=== PATIENT | male | born 1950 | race African-American/Black ===

== ENCOUNTER 2016-07-31 14:55 | Observation (INO) | payer MEDICARE, BC ==
[~2016-07-31] VITALS: Ht 195.6 cm; Wt 110.5 kg
[~2016-07-31 14:55] MED LIST: ONDANSETRON HCL 4 MG/2 ML VIAL IV PUSH ONE; PHENYLEPH/NS 1000 MCG/10 ML SYR IV ONE; PROPOFOL 200 MG/20 ML AMP IV ONE; SODIUM CHLOR 0.9% 250 ML INJ 250 ML IV ONE; ePHEDrine/NS 25 MG/5 ML SYR IV ONE
[2016-07-31] MEDS ORDERED: TRIAMCINOLONE ACETONIDE/PF 40 MG/ML OPTH VIAL ONE (15:12)
[2016-07-31] MEDS ORDERED: STERILE WATER FOR INJ 20 ML VIAL ONE (15:12)
[2016-07-31] MEDS ORDERED: DEXAMETHASONE SOD PHOS 4 MG/ML VIAL ONE (15:13)
[2016-07-31] MEDS ORDERED: EPINEPHrine HCL (1:1000) 1 MG/ML VIAL ONE (15:13)
[2016-07-31] MEDS ORDERED: ceFAZolin INJ 1,000 MG VIAL ONE (15:13)
[2016-07-31] MEDS ORDERED: BALANCED SALT SOLN OPHT IRRIG 15 ML BTL ONE ×3 (15:13→17:40)
[2016-07-31] MEDS ORDERED: AMLO10TA2 PO (15:31)
[2016-07-31] MEDS ORDERED: METO25TA6 PO (15:38)
[2016-07-31] MEDS ORDERED: ROSU1TAB6 PO (15:38)
[2016-07-31] MEDS ORDERED: MINO2.5T PO (15:38)
[2016-07-31] MEDS ORDERED: CALC667C (15:38)
[2016-07-31] MEDS ORDERED: METO5TAB3 PO (15:38)
[2016-07-31] MEDS ORDERED: FOLBTAB2 PO (15:38)
[2016-07-31] MEDS ORDERED: LOSA100T PO (15:38)
[2016-07-31] MEDS ORDERED: CLON0.1T PO (15:38)
[2016-07-31] MEDS ORDERED: ASPI325T PO (15:38)
[2016-07-31 15:44] VITALS: BP 187/87; PULSE 95; RESP 18; TEMP 97.7; O2SAT 100
[2016-07-31] MEDS ORDERED: POVIDONE IODINE 5% (ANTISEPSIS KIT) 4 APPLICATIONS EACH NARE PRN (15:45)
[2016-07-31] MEDS ORDERED: TROPICAMIDE 1% OPTH SOLN 2 ML BTL RIGHT EYE ONE (15:45)
[2016-07-31] MEDS ORDERED: INSULIN HUMAN REGULAR 1,000 UNITS/10 ML VIAL SQ PRN (15:45)
[2016-07-31] MEDS ORDERED: LACTATED RINGER'S 1000 ML IV PRN (15:45)
[2016-07-31] MEDS ORDERED: CYCLOPENTOLATE HCL 1% OPHT SOLN 2 ML BTL RIGHT EYE ONE (15:45)
[2016-07-31] MEDS ORDERED: METOPROLOL TARTRATE 25 MG TAB PO PRN (15:45)
[2016-07-31] MEDS ORDERED: CHLORHEXIDINE GLUCONATE 2 % 1 PACK (2 CLOTHS) TOPICAL PRN (15:45)
[2016-07-31] MEDS ORDERED: SODIUM CHLORID 0.9% 500 ML IV PRN (15:45)
[2016-07-31] MEDS ORDERED: PHENYLEPHRINE HCL 2.5 % OPTH SOLN 15 ML BTL RIGHT EYE ONE (15:45)
[2016-07-31] MEDS ORDERED: TROPICAMIDE 1% OPHT SOLN 15 ML BTL ONE (15:50)
[2016-07-31] MEDS ORDERED: PHENYLEPHRINE HCL 2.5% OPTH SOLN 2 ML BTL ONE (15:50)
[2016-07-31] MEDS ORDERED: ATROPINE SULFATE 1% OPHT SOLN 2 ML BTL ONE (15:50)
[2016-07-31] MEDS ORDERED: [UNRECOGNIZED DRUG - OTHER] I-OCULAR ONE (16:00)
[2016-07-31] MEDS ORDERED: [UNRECOGNIZED DRUG - OTHER] I-OCULAR ONE (16:00)
[2016-07-31] MEDS ORDERED: VANCOMYCIN 1 MG/0.1 ML I-OCULAR ONE (16:00)
[2016-07-31] MEDS ORDERED: CEFTAZIDIME I-OCULAR ONE (16:00)
[2016-07-31] MEDS: PHENYLEPHRINE HCL 2.5 % OPTH SOLN 15 ML BTL RIGHT EYE SCH ×3 (16:10→16:40)
[2016-07-31] MEDS: CYCLOPENTOLATE HCL 1% OPHT SOLN 2 ML BTL RIGHT EYE SCH ×3 (16:10→16:40)
[2016-07-31] MEDS: ATROPINE SULFATE 1% OPHT SOLN 2 ML BTL RIGHT EYE SCH ×3 (16:10→16:40)
[2016-07-31] MEDS: TROPICAMIDE 1% OPTH SOLN 2 ML BTL RIGHT EYE SCH ×3 (16:10→16:40)
[2016-07-31 16:13] LABS: POTASSIUM 4.3 MEQ/L (3.5-5.1)
[2016-07-31] MEDS ORDERED: CYCLOPENTOLATE HCL 1% OPHT SOLN 2 ML BTL RIGHT EYE SCH (16:30)
[2016-07-31] MEDS ORDERED: ATROPINE SULFATE 1% OPHT SOLN 5 ML BTL RIGHT EYE SCH (16:45)
[2016-07-31] MEDS ORDERED: FAMOTIDINE 20 MG/2 ML VIAL ONE (16:47)
[2016-07-31] MEDS: TOBRAMYCIN/DEXAMETHASONE OPTH OINT 3.5 GM TUBE ONE ×2 (17:32→18:55)
[2016-07-31] MEDS ORDERED: DO NOT ADM ANY ANTICOAGULANT DRUGS PRN (19:45)
[2016-07-31 20:00] VITALS: BP 187/87; PULSE 77; RESP 20; TEMP 97.6; O2SAT 96
[2016-07-31] MEDS ORDERED: MOXIFLOXACIN 0.5% OPHT SOLN 3 ML BTL RIGHT EYE SCH (21:00)
[2016-07-31] MEDS ORDERED: prednisoLONE ACETATE 1% OPHT SUSP 5 ML BTL RIGHT EYE SCH (21:00)
[2016-07-31] MEDS: oxyCODONE/ACETAMINOPHEN 5 MG/325 MG TAB PO PRN (21:56)
[2016-08-01] VITALS: BP_SYST 180; BP_SYST 185; BP_DIAS 60; BP_DIAS 81; PULSE 79; RESP 20; TEMP 97; O2SAT 96
[2016-08-01 04:00] VITALS: BP 155/73; PULSE 76; RESP 20; TEMP 96.7; O2SAT 76
[2016-08-01] MEDS: oxyCODONE/ACETAMINOPHEN 5 MG/325 MG TAB PO PRN (04:00)
[2016-08-01 08:00] VITALS: BP 171/82; PULSE 91; RESP 18; TEMP 97.2; O2SAT 96
[2016-08-01] MEDS ORDERED: CYCLOPENTOLATE HCL 1% OPHT SOLN 2 ML BTL RIGHT EYE SCH (09:00)
--- NOTE | 2016-08-01 15:29 | EKG ---
Date Performed: 07/31/2016 Time Performed: 15:31:38 PTAGE: 66 years EKG: Sinus rhythm BORDERLINE RIGHT AXIS DEVIATION BORDERLINE ECG NO PREVIOUS TRACING DOCTOR: Duke Medina Interpretating Date/Time 08/01/2016 15:27:56
--- NOTE | 2016-08-10 15:17 | MP ---
cc: TIFFANY LANDIN MD DATE OF SURGERY 08/06/16 POSTOPERATIVE DIAGNOSIS Endophthalmitis, right eye. PROCEDURE Pars plana vitrectomy, vitreous culture, insertion of vancomycin and ceftazidime, right eye. ANESTHESIA Dr. Garcia, general BLOOD LOSS Less than 1 mL COMPLICATIONS None INDICATION FOR PROCEDURE This patient presented with severe vision loss and pain in his right eye. The patient reports that the symptoms had been worsening over the week. The patient was found to have severe inflammation and elected for an immediate vitrectomy with vitreous culture and empiric antibiotic placement. PROCEDURE NOTE Informed consent was obtained. The patient was brought to the operating room. General anesthesia was established. The right eye was prepped and draped in a sterile fashion with Betadine in the conjunctival fornix. A three port pars vitrectomy was established with a self-retaining infusion cannula. The fibrinous debris was removed from the anterior chamber covering the pupil with grasping forceps. Iris retractors were placed. A core with vitreous sample was removed and sent for culture and sensitivity. Core vitreous was removed along with vitreous debris. The retina appeared to be attached. Trocars removed and sclerotomies closed with several Vicryl sutures. Conjunctiva was reapproximated with 6-0 plain gut. Intravitreal vancomycin and ceftazidime were instilled. The subconjunctival injection of dexamethasone, Kenalog and Ancef was completed. The eye was patched with TobraDex ointment. The patient was brought to recovery room in stable condition and will continue followup with [facility] for his postoperative care. MD ANUN Still/ /10:54 PM /3:10 PM LOY
== END 2016-08-01 09:49 | disposition home or self-care (01) ==
LOC: HSDC 14:55 → N05B 19:56
PROVIDERS: ADMIT Ophthalmology; ATTEND Ophthalmology
DX: H44.001 Unspecified purulent endophthalmitis, right eye (principal); R94.31 Abnormal electrocardiogram [ECG] [EKG]
CPT/HCPCS: 00145; 67036; 80048; 86403; 87015; 87070; 87102; 87116; 87205; 87206; 93005; G0378; J0171; J0690; J1100; J2370; J2405; J3010; J3300; J7040; J7050

== ENCOUNTER → 2016-08-19 | Day surgery (SDC) | payer MEDICARE, BC ==
[~2016-08-19] MED LIST changes: +AMLO10TA2 PO; +ASPI325T PO; +BALANCED SALT SOLN OPHT IRRIG 15 ML BTL ONE; +CALC667C; +CLON0.1T PO; +DEXAMETHASONE SOD PHOS 4 MG/ML VIAL ONE; +EPINEPHrine HCL (1:1000) 1 MG/ML VIAL ONE; +FOLBTAB2 PO; +KETOROLAC TROMETHAMINE 30 MG/ML (IVP) VIAL ONE; +LOSA100T PO; +METO25TA6 PO; +METO5TAB3 PO; +MIDAZOLAM HCL 2 MG/2 ML VIAL ONE; +MINO2.5T PO; +MORPHINE SULFATE 4 MG/ML INJ ONE; +MOXIFLOXACIN 0.5% OPHT SOLN 3 ML BTL ONE; -PHENYLEPH/NS 1000 MCG/10 ML SYR IV ONE; +PHENYLEPHRINE HCL 10% OPTH SOLN 5 ML BTL ONE; +ROSU1TAB6 PO; -SODIUM CHLOR 0.9% 250 ML INJ 250 ML IV ONE; +SODIUM CHLORIDE 0.9% INJ 10 ML ONE; +SODIUM CHLORIDE 0.9% SOLN 1000 ML BTL ONE; +TETRACAINE 0.5% OPTH SOLN 15 ML BTL ONE; +TOBRAMYCIN/DEXAMETHASONE OPTH OINT 3.5 GM TUBE ONE; +TRIAMCINOLONE ACETONIDE 40 MG/ML VIAL ONE; +VANCOMYCIN HCL 1000 MG VIAL ONE; +ceFAZolin INJ 1,000 MG VIAL ONE; -ePHEDrine/NS 25 MG/5 ML SYR IV ONE; +prednisoLONE ACETATE 1% OPHT SUSP 5 ML BTL ONE
--- NOTE | 2016-08-22 18:55 | MP ---
cc: KEVIN LANDIN MD DATE OF SURGERY: PREOPERATIVE DIAGNOSIS: History of endophthalmitis with vitreous debris, dislocated posterior chamber intraocular lens right eye. POSTOPERATIVE DIAGNOSIS: History of endophthalmitis with vitreous debris, dislocated posterior chamber intraocular lens right eye. OPERATIVE PROCEDURE PERFORMED: Pars plana vitrectomy, insertion of intravitreal vancomycin and Kenalog, scleral fixation of posterior chamber intraocular lens right eye. SURGEON: Kevin Landin M.D. COMPLICATIONS: None. ESTIMATED BLOOD LOSS: Less than 1 cc. ANESTHESIA: Dr. Mera general. INDICATIONS FOR THE PROCEDURE: This is a delightful patient who presented with endophthalmitis. The patient was promptly treated with intravitreal antibiotics and pars plana vitrectomy with vitreous culture. The patient continued to improve since the treatment but remained with dense vitreous debris. The patient had extraction with intraocular lens placement. The patient elected for a surgical correction to remove vitreous debris and to fixate his dislocated posterior chamber intraocular lens. DESCRIPTION OF THE PROCEDURE IN DETAIL: After informed consent was obtained, the patient was brought to the operating room and general anesthesia was established. The right eye was prepped and draped in sterile fashion with Betadine in the conjunctival fornix. A deep port pars plana vitrectomy was established with the self-retaining infusion cannula. Core vitreous was evacuated and vitreous debris removed with the pars plana vitrectomy. The vitreous base was shaved with vitrectomy. The retina was noted to be attached without defects. The posterior chamber intraocular lens was seen dislocated into the posterior chamber. This posterior chamber intraocular lens was then fixated to the sclera with placement of the haptics and to 23-gauge scleral tunnels parallel to the limbus. The posterior chamber intraocular lens appeared to be quite stable and the peripheral retina was further inspected with scleral depression. No untreated retinal holes, tears or detachments were seen. Intravitreal vancomycin and Kenalog was instilled. The trocars were removed and sclerotomies closed with several Vicryl sutures. Conjunctiva was reapproximated with 6-0 plain gut. The patient was brought to the recovery room in stable condition and will continue followup with [facility] for his postoperative care. MD NAUN Still/LOU /2:20 PM /6:51 PM
== END | disposition home or self-care (01) ==
LOC: ESDC 08:28
PROVIDERS: ATTEND Ophthalmology
DX: T85.22XA Displacement of intraocular lens, initial encounter (principal); H44.001 Unspecified purulent endophthalmitis, right eye; E11.9 Type 2 diabetes mellitus without complications
CPT/HCPCS: 00142; 00145; 66825; 67036; 82948; J0171; J0690; J1100; J1885; J2250; J2270; J2405; J3010; J3301; J3370

== ENCOUNTER → 2017-04-20 | Day surgery (SDC) | payer MEDICARE, BC ==
[~2017-04-20] MED LIST changes: +ASPI-183 PO; -ASPI325T PO; -BALANCED SALT SOLN OPHT IRRIG 15 ML BTL ONE; +LACTATED RINGER'S 1000 ML INJ 1,000 ML ONE; +METO1TAB42 PO; -METO25TA6 PO; -MORPHINE SULFATE 4 MG/ML INJ ONE; -PROPOFOL 200 MG/20 ML AMP IV ONE; +PROPOFOL 500 MG/50 ML BTL IV ONE; -SODIUM CHLORIDE 0.9% SOLN 1000 ML BTL ONE; -VANCOMYCIN HCL 1000 MG VIAL ONE
--- NOTE | 2017-04-23 12:13 | MP ---
cc: KEVIN LANDIN MD DATE OF SURGERY: 04/20/2017. PREOPERATIVE DIAGNOSIS: Retinal detachment, severe retinal ischemia, , severe vision loss, vasculopathy, right eye. POSTOPERATIVE DIAGNOSIS: Retinal detachment, severe retinal ischemia, , severe vision loss, vasculopathy, right eye. OPERATIVE PROCEDURE PERFORMED: Pars plana vitrectomy, retinal detachment repair, endolaser, insertion of 5000 centistokes silicone oil, right eye. SURGEON: Kevin Landin MD. COMPLICATIONS: None. ESTIMATED BLOOD LOSS: Less than 1 cc. ANESTHESIA: Dr. Clark general. INDICATIONS FOR THE PROCEDURE: This is a delightful patient who unfortunately suffered a severe ocular and retinal ischemia. The patient developed serious retinal detachments and was . The patient had significant loss of vision after this vascular event. The patient is undergoing vascular workup but elected for surgical correction of his retinal detachment with intraocular silicone oil as tamponade in hopes to decrease the progression to . The patient understands the severity and the grave prognosis. DESCRIPTION OF THE PROCEDURE IN DETAIL: After informed consent was obtained, the patient was brought to the operating room and general anesthesia was established. The right eye was prepped and draped in the usual sterile fashion with Betadine in the conjunctival fornix. A three port pars plana vitrectomy was established with self-retaining infusion cannula. An endoscopic probe was used to allow visualization of the posterior pole. Endoscopic probe was used and a closed frontal retinal detachment was identified. The proliferative tissue from the anterior retina was dissected free with forceps and vitrectomy. PFO was used to reattach the retina to the posterior pole. Endolaser was applied surrounding the reattached retina. Air-fluid exchange was carried out and central retina remained attached. Intraocular silicone oil was instilled. The trocars were removed and sclerotomies closed with several Vicryl sutures. Conjunctiva was reapproximated using 6-0 plain gut. Subconjunctival injections of Ancef and dexamethasone were given. The eye was patched with Tobramycin ointment. The patient was brought to the recovery room in stable condition. He will continue follow up with [facility] for his postoperative care. MD NAUN Still/LOU /4:39 PM /11:54 AM
== END | disposition home or self-care (01) ==
LOC: ESDC 08:08
PROVIDERS: ATTEND Ophthalmology
DX: H33.21 Serous retinal detachment, right eye (principal); H35.82 Retinal ischemia; H54.61 Unqualified visual loss, right eye, normal vision left eye; H43.821 Vitreomacular adhesion, right eye
CPT/HCPCS: 00145; 67108; 82948; C1814; J0171; J0690; J1100; J1885; J2250; J2405; J3010; J3301; J7120